=== PATIENT | female | born 1985 | race Caucasian/White ===

== ENCOUNTER 2017-06-21 23:51 | Emergency (ER) | payer MEDICAID ==
[~2017-06-21] VITALS: Ht 165.1 cm; Wt 57.6 kg
--- NOTE | 2017-06-22 02:06 | NUR ---
PT IN BED. PT'S VISITOR AT BEDSIDE. PT IS AAOX4. PTS BREATH SOUNDS ARE REGULAR AND UNLABORED. PT AND VISITOR DRINKING COFFEE.
--- NOTE | 2017-06-22 02:34 | NUR ---
Patient discharged to home in stable conditon. Written and verbal after care instructions given. Patient verbalizes understanding of instructions. Patient able to ambulate unassisted with steady gait. Patient left with all of her belongings.
[2017-06-22 03:33] VITALS: BP 124/84
== END 2017-06-22 02:34 | disposition home or self-care (01) ==
LOC: ER 23:53
DX: G51.0 Bell's palsy (principal)
CPT/HCPCS: 70450; 70470; A4663; J7050